=== PATIENT | female | born 1925 | race Caucasian/White ===

== ENCOUNTER → 2016-03-01 | Outpatient (CLI) | payer OTHER ==
[~2016-03-01] MED LIST: COUMADIN 2 MG TA2 M1 PO; COUMADIN 3 MG TA3 M1 PO; COZAAR 25 MG TA25 M1 PO; CYMBALTA30 MG PO; DEMADEX 2020 MG/1 TA PO; KLOR-CON 1010 MEQ PO; LASIX 40 MG TAB40 M2 PO; PANTOPRAZOLE SO40 M1 PO; PRAVACHOL40 MG PO; RANITIDINE 150150 M1 PO; RESTORIL15 MG PO; SORINE 80 MG TA80 M1 PO; TRAMADOL 50 MG50 MG PO
== END ==
LOC: RAD 13:59
DX: J90 Pleural effusion, not elsewhere classified (principal); R91.8 Other nonspecific abnormal finding of lung field

== ENCOUNTER → 2016-05-27 | Outpatient (CLI) | payer OTHER | LOC: ULTRA 02:02 | DX: M79.89 Other specified soft tissue disorders (principal); M79.604 Pain in right leg ==

== ENCOUNTER 2016-09-10 13:10 | Inpatient (IN) | payer OTHER ==
[~2016-09-10] VITALS: Ht 167.6 cm; Wt 71.2 kg
--- NOTE | ~2016-09-10 | HC ---
[facility] [place] [address] CONSULTATION Name: DENISSE CHAPMAN V Room #: 544-P [facility] IN ..#: [id number] Admission: 09/10/16 Attend Phys: Sheryl Jean MD Discharge: 09/20/16 Date of : [birth year] Report #: [id number] THIS REPORT FOR: //name// CC: Sheryl Venegas REASON FOR CONSULTATION: The patient is an 89-year-old woman who was admitted with septic arthritis who has had elevation of liver function studies. HISTORY OF PRESENT ILLNESS: This 89-year-old woman was admitted for septic arthritis and has been treated with antibiotics. She has had some complaints of gas symptoms and notes that she has had chronic constipation at home. Gas-X has been helpful. She has not had that here, so she has had more abdominal pain and discomfort. Labs were drawn and liver function studies revealed bilirubin 0.6. AST 48, ALT is 67, alkaline phosphatase of 139. Albumin was 2.9. Amylase and lipase were normal. Creatinine is 1.3 with BUN of 37. Electrolytes are unremarkable. INR 2.8, on Coumadin. White count of 16.6, hemoglobin of 10.7 and platelet count of 335,000. The imaging studies include abdominal film today reveals nonspecific abdominal findings without evidence of obstruction. There are scattered air fluid levels raising the possibility of an ileus or enteritis. The patient has never been told she had an abnormal liver function studies in the past. LFTs last January in the computer database were normal. She did have aortic valve replacement in 2003 and did have blood transfusions and likely blood transfusions. She has never had hepatitis or jaundice. No change in hair, skin or urine. She has not had complaints of pruritus. She has never consumed alcohol. She is not exposed to hepatitis. PAST MEDICAL HISTORY: Notable for aortic valve replacement, congestive heart failure. She has had esophagitis in the past. She has had pulmonary emboli. She has had a hiatus hernia. She has also had atrial fibrillation and high blood pressure and elevated cholesterol. PAST SURGICAL HISTORY: Back surgery x 2, hip surgery and later total hip replacement and aortic valve replacement. ALLERGIES: PIROXICAM, FEXOFENADINE and LATEX. HOME MEDICATIONS: Include atorvastatin, Ceftin, dexamethasone, diltiazem, Cymbalta, losartan, pantoprazole, potassium, temazepam, torsemide, tramadol, trazodone, warfarin. FAMILY HISTORY: No family history of colon cancer or ulcer disease. SOCIAL HISTORY: She has never smoked, has never consumed much alcohol. [address] [address] CONSULTATION Name: DENISSE CHAPMAN Jarrell Room #: 544-P [facility] IN ..#: [id number] Admission: 09/10/16 Attend Phys: Sheryl Jean MD Discharge: 09/20/16 Date of : [birth year] Report #: [id number] REVIEW OF SYSTEMS: GENERAL: No change in weight, fever or chills. CENTRAL NERVOUS SYSTEM: TIA several years ago, resolved without further incident. She also has problems with vertigos. HEENT: She has macular degeneration and glaucoma and has had cataract surgery. PULMONARY: No cough, pneumonia or tuberculosis. CARDIOVASCULAR: Congestive heart failure. No recent chest pain or chest tightness. GASTROINTESTINAL: No nausea or vomiting. She does have dysphagia and has had dilation in the past and having problems again. She has also trouble with constipation, was treated with fiber and Gas-X. GENITOURINARY: Without dysuria or pyuria. GYNECOLOGIC: Without breast problems or vaginal discharges. MUSCULOSKELETAL: Hip replacement and back surgery. SKIN: Without rashes. PSYCHIATRIC: No depression, anxiety or bipolar illness. ENDOCRINE: She is not aware of diabetes or thyroid problems. HEMATOLOGIC: No bleeding or bruising malignancies. PHYSICAL EXAMINATION: GENERAL: Well-developed, well-nourished, pleasant woman in no acute distress. VITAL SIGNS: Blood pressure 124/71. HEENT: Anicteric. Pupils equal and round. Oropharynx clear. NECK: Supple. CHEST: Clear. HEART: Regular rate and rhythm, normal S1 and S2. ABDOMEN: Normal bowel sounds, soft, nontender without hepatosplenomegaly or masses. RECTAL: Not done. EXTREMITIES: Without cyanosis, clubbing, edema. ASSESSMENT: 1. Abnormal liver function studies. 2. Abdominal pain, gas pain according to the patient. 3. Constipation. 4. Solid food dysphagia, recurrent. 5. Reflux esophagitis. 6. Aortic valve replacement. 7. Congestive heart failure. 8. Chronic anticoagulation. 9. Septic arthritis. COMMENT: No prior history of liver disease. The patient is asymptomatic. Stigmata of chronic liver disease is not identified on exam. LFTs may be reactive with regards to her septic arthritis. Antibiotics may be a factor as [facility] [address] [place] [address] CONSULTATION Name: DENISSE CHAPMAN V Room #: 544-P [facility] IN M.R.#: [id number] Admission: 09/10/16 Attend Phys: Sheryl Jean MD Discharge: 09/20/16 Date of : [birth year] Report #: [id number] well. She has had congestive heart failure. This may be a factor as well, although I think that it is probably less likely. She has not had significant right upper quadrant pain. RECOMMENDATIONS: 1. Ultrasound of abdomen. 2. Monitor liver function studies. 3. Hepatitis B and C serologies since she has had transfusions. <ELECTRONICALLY SIGNED> By: Rajendra Werner MD 09/22/16 1101 1705 1943 Rajendra Werner MD /nt
--- NOTE | ~2016-09-10 | HC ---
[facility] [place] [address] CONSULTATION Name: DENISSE CHAPMAN V Room #: 544-P ADM IN M.R.#: [id number] Admission: 09/10/16 Attend Phys: Sheryl Jean MD Discharge: Date of : 10/[birth year] Report #: [id number] THIS REPORT FOR: //name// CC: Sheryl Venegas TYPE OF REPORT: Infectious disease consultation. REASON FOR CONSULTATION: I was asked to evaluate concerning left hand and wrist infection. HISTORY OF PRESENT ILLNESS: The patient is an 89-year old who presents on 09/10/2016 with a 2-day history of increased pain and swelling in her left wrist. No fever, chills or sweats. Has had intermittent cough and sputum production for the last several weeks. Two weeks ago was treated with a 5-day course of prednisone. This helped some regarding her cough. No purulent sputum production. No fever, chills or sweats. She stated that she awokened with left hand and wrist discomfort. Had difficulty moving her fingers. No previous trauma. No history of arthritis, other than mild degenerative change. No new medications. No recent antibiotics. She was admitted on 09/10/2016 and placed on vancomycin. Over the last 24 hours, she has noted some improvement in her hand and wrist. ALLERGIES: PIROXICAM, LATEX and FEXOFENADINE. MEDICATIONS: As noted on APR, including the vancomycin. PAST MEDICAL HISTORY: Hiatal hernia and gastroesophageal reflux. She has had back surgery, left hip replacement, right hip repair, hypertension, hyperlipidemia, aortic valve replacement, congestive heart failure and atrial fibrillation. FAMILY HISTORY: Noncontributory. SOCIAL HISTORY: Nonsmoker. No significant alcohol intake. REVIEW OF SYSTEMS: No headache, nausea, vomiting, diarrhea, dysuria or frequency. Cough was with minimal sputum production. No chest pain. PHYSICAL EXAMINATION: VITAL SIGNS: Afebrile, hemodynamically stable. GENERAL: Alert and cooperative and pleasant, in no acute distress. HEENT: Unremarkable. CHEST: With few crackles in the left base posteriorly. HEART: Regular with crisp valve sounds. No appreciable murmur. ABDOMEN: Soft and nontender. No hepatosplenomegaly or mass. [facility] [address] [place] [address] CONSULTATION Name: DENISSE CHAPMAN V Room #: 544-P [facility] IN .R.#: [id number] Admission: 09/10/16 Attend Phys: Sheryl Jean MD Discharge: Date of : 10/[birth year] Report #: [id number] EXTREMITIES: Unremarkable other than her left upper extremity with 2+ edema. There was erythema over the dorsal aspect of her hand from the distal forearm to her fingers involving 2 and 3. She had limited range of motion in fingers 2 and 3 with flexion. Limited hand client experience manager. Wrist had reasonable range of motion. Elbow was unremarkable. Pulses in the wrist were normal. Sensation in the hand was normal. Capillary refill normal. LABORATORY STUDIES: Creatinine is 1.3. CRP 188. Hemoglobin 10.3; white count 12.8 and platelet count 258,000. Differential unremarkable. Sedimentation rate 33. Uric acid 5.9. Calcium 8.9. Blood cultures negative. 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 IMPRESSION: An 89-year old with cellulitis and tenosynovitis of the left hand and wrist region. It appears to be improving. We would recommend continuing IV antibiotic therapy for this. She also has a left lower lobe pulmonary infiltrate. This is associated with a small effusion. It is noted that she had had issues with the left lung back in February. PLAN: To continue vancomycin and add ceftriaxone. We will screen for MRSA. Also, check urine antigen and mycoplasma serology. <ELECTRONICALLY SIGNED> By: Aubrey Villar MD 09/13/16 1426 1218 41 Aubrey Villar MD /nt
--- NOTE | ~2016-09-10 | HC ---
[facility] [place] [address] CONSULTATION Name: DENISSE CHAPMAN V Room #: 544-P [facility] IN M.R.#: [id number] Admission: 09/10/16 Attend Phys: Sheryl Jean MD Discharge: Date of : 10/18/[birth year] Report #: [id number] THIS REPORT FOR: //name// CC: Sheryl Eastman MD [facility] ORTHOPEDIC CONSULTATION REASON FOR CONSULTATION: Left wrist pain. HISTORY OF PRESENT ILLNESS: The patient is an 89-year-old female who reports on Monday, she noticed significant increase in wrist pain and swelling with redness. She reports the pain is not improved over the last 2 days. She denies a history of gout, denies prior history of similar scenario. She was seen at an urgent care and reportedly had an elevated temperature of 100 degrees. She denies any wounds or lacerations or recent trauma. She reports her pain is sharp, is in the wrist level as well as distal to her hand. PAST MEDICAL HISTORY: Hypertension and congestive heart failure. HOME MEDICATIONS: Per the medical record include tramadol, warfarin, losartan, temazepam, duloxetine, potassium chloride, atorvastatin, diltiazem and trazodone. ALLERGIES: FEXOFENADINE, LATEX AND PIROXICAM. SOCIAL HISTORY: She lives with her daughter, uses a cane or a walker at times and is right-hand dominant. Denies smoking or drinking alcohol. REVIEW OF SYSTEMS: MUSCULOSKELETAL: Reports some mild chronic right hip pain. NEUROLOGIC: Denies numbness or tingling. PAST SURGICAL HISTORY: Left total hip replacement in 2001, back surgery in 2002. She has had some type of surgery on her right hip and she has had an aortic valve replacement. LABORATORY DATA: Laboratory studies done on 09/10/2016 show white blood cell count 15.7, hemoglobin 11.9, hematocrit 36.6 and platelet count 293,000. ESR is elevated at 33. Sodium is 133, potassium is normal at 3.9 and creatinine is elevated at 1.3. Uric acid is normal at 5.9. CRP is elevated at 188.5. There are no labs currently today. PHYSICAL EXAMINATION: GENERAL: The patient is alert and oriented. [place] [address] CONSULTATION Name: DENISSE CHAPMAN V Room #: 544-P [facility] IN ..#: [id number] Admission: 09/10/16 Attend Phys: Sheryl Jean MD Discharge: Date of : 10/[birth year] Report #: [id number] is a well-developed, well-nourished female in no acute distress. She converses well. She has a little difficulty hearing our conversation, but is able to communicate well and cooperative well. VITAL SIGNS: Most recent vital signs show a temperature of 36.7, heart rate is 91, respiratory rate 20, blood pressure 101/80 and pulse oximetry is 98% on 2 liters nasal cannula. EXTREMITIES: Examination of her left upper extremity, the skin is clean, dry and intact. She has a dorsal erythema extending from approximately 6 cm proximal to the wrist to the MP joints, more radially on the index and approximately midway of the metacarpals on the ring and small. There is minimal to no volar erythema. Sensation is intact to light touch. She very gently moves her fingers, but her motion is significantly decreased. She has pain with attempted finger and wrist and forearm motion. She has tenderness to palpation throughout the entire area of erythema. It does not seem to be exclusively localized to the wrist. There is no elbow pain and no proximal forearm pain. 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 IMPRESSION AND PLAN: Right wrist and hand pain with elevated white blood cell count and inflammatory markers. The pain does not appear to be only localized to the wrist. I am suspicious for pseudogout. At this point, I feel it is appropriate to obtain more lab work this morning including CBC and a PT-INR. I would continue her on antibiotics, possibly consider systemic steroid. If the potential diagnosis is CPPD, we discussed that I will tentatively put her on the surgery schedule for tomorrow for irrigation. However, I will see her tomorrow morning and assess her progress. Thank you very much for allowing me to participate in the care of this patient. By: [id number] [id number] Carey Venegas MD /nt
[2016-09-10 13:11] VITALS: BP 101/48
[2016-09-10] MEDS ORDERED: LIPITOR 20 MG T20 M1 PO ×2 (13:34)
[2016-09-10] MEDS ORDERED: CARDIZEM CD180 MG PO (13:36)
[2016-09-10] MEDS ORDERED: TRAZODONE HCL50 MG PO (13:38)
[2016-09-10 14:07] LABS: HEMATOCRIT 36.6 % (37.0-47.0); HEMOGLOBIN 11.9 gm/dL (12.0-15.0); MCH 26.4 pg (26.0-34.0); MCHC 32.5 g/dL (28.0-37.0); MCV 81.3 fL (80.0-100.0); PLATELET COUNT 293 thou/uL (150-400); RBC 4.51 mil/uL (4.20-5.00); RDW 16.3 % (10.5-14.5); WBC 15.7 thou/uL (4.0-11.0)
[2016-09-10 14:08] LABS: MANUAL DIFF YES
[2016-09-10 14:17] LABS: CALCIUM 8.9 mg/dL (8.5-10.1); CREATININE 1.3 mg/dL (0.6-1.0); POTASSIUM 3.9 mmol/L (3.5-5.1)
[2016-09-10 14:41] LABS: ABSOLUTE NEUTROPHILS 13.7 thou/uL (1.4-8.2); TOTAL CELL COUNT 100
[2016-09-10 14:42] LABS: ANISOCYTOSIS 1+
[2016-09-10 15:58] VITALS: BP 101/52
[2016-09-10 16:15] VITALS: BP 116/59
[2016-09-10 20:00] VITALS: BP 101/80
[2016-09-11 07:55] VITALS: BP 98/47
[2016-09-11 09:09] LABS: HEMATOCRIT 31.4 % (37.0-47.0); HEMOGLOBIN 10.3 gm/dL (12.0-15.0); MCH 26.4 pg (26.0-34.0); MCHC 32.7 g/dL (28.0-37.0); MCV 80.5 fL (80.0-100.0); PLATELET COUNT 258 thou/uL (150-400); RDW 15.9 % (10.5-14.5); WBC 12.8 thou/uL (4.0-11.0)
[2016-09-11 09:12] LABS: MANUAL DIFF YES
[2016-09-11 09:27] LABS: INR 2.4; PROTIME 24.5 Seconds (9.3-11.4)
[2016-09-11 10:01] LABS: ABSOLUTE NEUTROPHILS 10.5 thou/uL (1.4-8.2); ANISOCYTOSIS 1+; HYPOCHROMASIA 1+; TOTAL CELL COUNT 100
[2016-09-11 14:09] LABS: ABG SAMPLE TYPE ARTERIAL; BE(vivo) -1.4 mmol/L (-2 to +3); HCO3 23.1 mmol/L (22.0-26.0); LACTATE 1.25 mmol/L (0.5-2.0); O2(CT) 15.2 mL/dL (15.0-23.0); O2Hb 96.5 % (92.0-98.0); PCO2 38.4 mmHg (35.0-45.0); PO2 91.8 mmHg (80.0-100.0); pH 7.398 (7.360-7.450); tCO2 24.3 mmol/L (24.0-30.0)
[2016-09-11 14:11] LABS: STICK SITE R.RADIAL
[2016-09-11 15:30] VITALS: BP 136/58
[2016-09-11 23:08] VITALS: BP 149/80
[2016-09-12 00:29] VITALS: BP 149/80
[2016-09-12 15:00] LABS: ABSOLUTE NEUTROPHILS 11.1 thou/uL (1.4-8.2); BASOPHILS 0.3 % (0.0-2.0); EOSINOPHILS 0.2 % (0.0-3.0); HEMATOCRIT 35.3 % (37.0-47.0); HEMOGLOBIN 11.3 gm/dL (12.0-15.0); LYMPHOCYTES 4.9 % (24.0-44.0); MCH 26.7 pg (26.0-34.0); MCV 83.4 fL (80.0-100.0); MONOCYTES 1.9 % (1.0-8.0); PLATELET COUNT 267 thou/uL (150-400); POLYS 92.7 % (36.0-66.0); RBC 4.23 mil/uL (4.20-5.00); RDW 16.2 % (10.5-14.5); WBC 11.9 thou/uL (4.0-11.0)
[2016-09-12 15:04] LABS: MANUAL DIFF NO
[2016-09-12 16:35] VITALS: BP 100/53
[2016-09-12 20:10] VITALS: BP 123/73
[2016-09-13 03:38] VITALS: BP 109/74
[2016-09-13 04:59] LABS: HEMATOCRIT 31.1 % (37.0-47.0); HEMOGLOBIN 10.3 gm/dL (12.0-15.0); MCH 26.7 pg (26.0-34.0); MCV 80.9 fL (80.0-100.0); RBC 3.85 mil/uL (4.20-5.00); RDW 15.7 % (10.5-14.5); WBC 7.2 thou/uL (4.0-11.0)
[2016-09-13 05:18] LABS: INR 1.8; PROTIME 18.1 Seconds (9.3-11.4)
[2016-09-13 05:30] LABS: CALCIUM 8.3 mg/dL (8.5-10.1); CREATININE 1.1 mg/dL (0.6-1.0); POTASSIUM 4.3 mmol/L (3.5-5.1)
[2016-09-13 07:36] VITALS: BP 104/56
[2016-09-13 15:15] VITALS: BP 105/61
[2016-09-13 20:00] VITALS: BP 123/80
[2016-09-14] VITALS: BP 103/64
[2016-09-14 04:00] VITALS: BP 112/64
[2016-09-14 07:47] VITALS: BP 99/51
[2016-09-14 19:44] VITALS: BP 124/72
[2016-09-15 05:10] VITALS: BP 121/82
[2016-09-15 06:35] LABS: HEMATOCRIT 33.1 % (37.0-47.0); HEMOGLOBIN 10.7 gm/dL (12.0-15.0); MCHC 32.5 g/dL (28.0-37.0); MCV 80.2 fL (80.0-100.0); RBC 4.13 mil/uL (4.20-5.00); RDW 15.9 % (10.5-14.5); WBC 16.6 thou/uL (4.0-11.0)
[2016-09-15 06:38] LABS: PROTIME 28.4 Seconds (9.3-11.4)
[2016-09-15 07:05] LABS: INR 2.8
[2016-09-15 08:29] VITALS: BP 131/74
[2016-09-15 15:18] VITALS: BP 121/69
[2016-09-15 19:16] VITALS: BP 114/69
[2016-09-16] MEDS ORDERED: DEXAMETHASONE 44 M1 PO (01:37)
[2016-09-16 03:40] VITALS: BP 121/71
[2016-09-16 09:44] VITALS: BP 124/71
[2016-09-16] MEDS ORDERED: CEFUROXIME500 MG PO (09:47)
[2016-09-16 11:26] LABS: ALBUMIN 2.9 g/dL (3.4-5.0); CALCIUM 8.4 mg/dL (8.5-10.1); CREATININE 1.3 mg/dL (0.6-1.0); POTASSIUM 4.4 mmol/L (3.5-5.1); TOTAL BILIRUBIN 0.6 mg/dL (<0.1-1.0); TOTAL PROTEIN 6.5 g/dL (6.4-8.2)
[2016-09-16 16:25] VITALS: BP 125/78
[2016-09-16 19:59] VITALS: BP 120/99
[2016-09-17 01:07] LABS: HEPATITIS C VIRUS AB <0.1 (0.0-0.9)
[2016-09-17 03:53] VITALS: BP 123/86
[2016-09-17 05:03] LABS: PROTIME 43.2 Seconds (9.3-11.4)
[2016-09-17 05:04] LABS: INR 4.3
[2016-09-17 05:08] LABS: ALBUMIN 2.7 g/dL (3.4-5.0); DIRECT BILIRUBIN 0.2 mg/dL (<0.1-0.3); TOTAL BILIRUBIN 0.6 mg/dL (<0.1-1.0)
[2016-09-17 08:00] VITALS: BP 129/96
[2016-09-17 18:01] VITALS: BP 130/80
[2016-09-17 19:33] VITALS: BP 110/88
[2016-09-18 03:28] VITALS: BP 104/70
[2016-09-18 05:59] LABS: HEMATOCRIT 31.5 % (37.0-47.0); HEMOGLOBIN 10.4 gm/dL (12.0-15.0); MCH 26.4 pg (26.0-34.0); MCHC 33.1 g/dL (28.0-37.0); MCV 79.6 fL (80.0-100.0); RBC 3.95 mil/uL (4.20-5.00); RDW 15.8 % (10.5-14.5); WBC 14.7 thou/uL (4.0-11.0)
[2016-09-18 06:08] LABS: INR 3.9; PROTIME 39.3 Seconds (9.3-11.4)
[2016-09-18 06:19] LABS: ALBUMIN 2.7 g/dL (3.4-5.0); DIRECT BILIRUBIN 0.2 mg/dL (<0.1-0.3); TOTAL BILIRUBIN 0.6 mg/dL (<0.1-1.0); TOTAL PROTEIN 5.9 g/dL (6.4-8.2)
[2016-09-18 09:28] VITALS: BP 121/92
[2016-09-18 09:41] VITALS: BP 121/92
[2016-09-18 16:00] VITALS: BP 108/65
[2016-09-18 18:55] VITALS: BP 114/63
[2016-09-19 02:38] VITALS: BP 117/74
[2016-09-19 04:31] LABS: INR 3.6; PROTIME 36.1 Seconds (9.3-11.4)
[2016-09-19 07:50] VITALS: BP 121/79
[2016-09-19 19:33] VITALS: BP 119/74
[2016-09-20 04:37] VITALS: BP 118/88
[2016-09-20 08:25] VITALS: BP 127/81
[2016-09-20] MEDS ORDERED: MIRALAX17 GM PO (09:27)
[2016-09-20] MEDS ORDERED: DEXAMETHASONE 44 M1 PO (09:28)
[2016-09-20] MEDS ORDERED: CEFUROXIME500 MG PO (09:29)
[2016-09-20 09:56] VITALS: BP 127/81
[2016-09-20 10:16] VITALS: BP 127/81
[2016-09-20 10:26] VITALS: BP 127/81
== END 2016-09-20 14:00 | disposition home health service (06) | DRG 549 ==
LOC: ER 13:10 → EROBS 15:05 → 5S 15:05
PROVIDERS: Emergency Medicine; Internal Medicine; Internal Medicine Pulmonary Disease; Orthopaedic Surgery Hand Surgery; Specialist
PROC: 5A09357 Assistance with Respiratory Ventilation, Less than 24 Consecutive Hours, Continuous Positive Airway Pressure (ICD-10-PCS; principal; 2016-09-11)
DX: M00.9 Pyogenic arthritis, unspecified (principal); L03.114 Cellulitis of left upper limb; I50.32 Chronic diastolic (congestive) heart failure; E44.0 Moderate protein-calorie malnutrition; M65.842 Other synovitis and tenosynovitis, left hand; I11.0 Hypertensive heart disease with heart failure; K21.9 Gastro-esophageal reflux disease without esophagitis; E78.5 Hyperlipidemia, unspecified; I48.91 Unspecified atrial fibrillation; K59.00 Constipation, unspecified; K80.20 Calculus of gallbladder without cholecystitis without obstruction; E78.00 Pure hypercholesterolemia, unspecified; Z96.642 Presence of left artificial hip joint; G47.33 Obstructive sleep apnea (adult) (pediatric); Z96.652 Presence of left artificial knee joint; Z68.25 Body mass index [BMI] 25.0-25.9, adult; Z86.711 Personal history of pulmonary embolism; Z79.01 Long term (current) use of anticoagulants; Z79.899 Other long term (current) drug therapy; Z95.2 Presence of prosthetic heart valve; Z88.8 Allergy status to other drugs, medicaments and biological substances; Z91.040 Latex allergy status
CPT/HCPCS: 10086

== ENCOUNTER 2016-10-05 18:39 | Inpatient (IN) | payer OTHER ==
[~2016-10-05] VITALS: Ht 170.2 cm; Wt 70.1 kg
--- NOTE | ~2016-10-05 | CNG ---
[facility] [place] [address] CYTO-NONGYN REPORT PROCEDURE Name: DENISSE JOY V Room #: 447-P ADM IN M.R.#: [id number] Admission: 10/05/16 Date of : [birth year] Discharge: Report #: [id number] Path Case #: [id number] CYTOPATHOLOGY REPORT COLLECTION DATE: 10/12/2016 RECEIVED DATE: 10/12/2016 SUBMITTING PHYS: Dr. Denilson Godfrey OTHER PHYS: Dr. Kwabena Eastman CLINICAL HISTORY: Weakness, UTI. SPECIMEN(S) RECEIVED: A.Pleural fluid, Right * * * * * * * * * * * * FINAL DIAGNOSIS: A. Pleural fluid, Right: - No malignant epithelial cells identified. - Reactive mesothelial cells identified in a background of chronic inflammation including increased lymphocytes. COMMENT: The lymphocytes are small round and mature appearing. No markedly atypical cells are seen. If there is a clinical suspicion for a lymphoproliferative process and/or the effusion is unexplained / recurs, flow cytometry may provide additional information, if clinically indicated. Clinical and radiographic correlation is recommended. (CLW;10/13/16) PATHOLOGIST: Lauryn Ibarra M.D. REPORT ELECTRONICALLY SIGNED BY: Lauryn Ibarra M.D. DATE/TIME: 10/13/2016 11:49 * * * * * * * * * * * * GROSS PATHOLOGY: A. Pleural fluid, Right: The specimen is submitted unfixed, labeled "Denisse Joy V". Received by the Cytology Department is 30 mL of reddish orange fluid. One ThinPrep slide and a formalin fixed cell block were prepared. (clt 10.12.2016) BLACKJACK DEALER(S): YOANA Wright([facility]) INITIAL CPT CODE(S): A; 01587, 11732 Professional services performed by [facility] at [facility] [address] [place] [address] [facility] [address] [place] [address] CYTO-NONGYN REPORT PROCEDURE Name: DENISSE JOY V Room #: 447-P ADM IN M.R.#: [id number] Admission: 10/05/16 Date of : [birth year] Discharge: Report #: [id number] Path Case #: [id number] Technical services performed by [facility] at [address] [place] [address], [address], [place] [address]. [address], [address] [place] [address] PHONE: [phone] DIRECTOR: Hudson Burns M.D. * * * END OF REPORT * * *
--- NOTE | ~2016-10-05 | HC ---
[facility] [place] [address] CONSULTATION Name: DENISSE CHAPMAN Jarrell Room #: 447-P [facility] IN M.R.#: [id number] Admission: 10/05/16 Attend Phys: Kwabena Eastman MD Discharge: Date of : 10/[birth year] Report #: [id number] THIS REPORT FOR: //name// CC: Kwabena Eastman DATE OF SERVICE: 10/12/2016 HISTORY OF PRESENT ILLNESS: The patient is an 89-year-old white female originally admitted to [facility] on 09/10/2016 with left wrist pain, question septic arthritis versus calcium pyrophosphate crystal disease. She was treated with full dose antibiotics and corticosteroids, discharged home on 09/20/2016. She ended up being readmitted to [facility] at [facility] on 09/29/2016 due to diarrhea and weight loss. She has remained quite weak and upon being seen in the office by Dr. Eastman. She was noted to have mental status changes, failure to thrive, progressive weakness, hyponatremia, urinary tract infection, and development of cough, she was admitted for further evaluation. 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 She was noted to have hyponatremia, urinary tract infection. Findings consistent with congestive heart failure. She has been followed closely by Pulmonary Medicine. She has bilateral pleural effusions, right greater than left and the plan is to undergo a right-sided thoracentesis when INR is acceptable. She has severe pulmonary hypertension. She has atrial fibrillation. She has a history of pulmonary embolism on anticoagulation. We are seeing her in rehabilitation medicine consultation. PAST MEDICAL HISTORY: As noted above. She has a history of mechanical mitral valve on Coumadin, diastolic congestive heart failure, back surgery, left hip replacement, hyperlipidemia, history of a small pulmonary embolism, pneumonia, permanent atrial fibrillation, asymptomatic gallstones. MEDICATIONS: Please see the full medication listing. ALLERGIES: PIROXICAM, FEXOFENADINE AND LATEX. SOCIAL HISTORY: Lives in a house with her daughter, 3 steps, used a front-wheeled walker and off. Daughter is there during the day and apparently does not work and can be of assistance. She was not on O2 premorbidly. REVIEW OF SYSTEMS: Complains of general overall weakness. No current complaints of chest pain, shortness of breath or abdominal discomfort. No focal extremity pain complaints. PHYSICAL EXAMINATION: GENERAL: An 89-year-old white female in no obvious distress. She is pleasant. She is on nasal prong O2, currently 2 liters. The patient is alert. VITAL SIGNS: Temperature 97.9, pulse 92, respirations 18, blood pressure [address] [address] CONSULTATION Name: DENISSE CHAPMAN V Room #: 447-P [facility] IN [facility].#: [id number] Admission: 10/05/16 Attend Phys: Kwabena Eastman MD Discharge: Date of : 10/18/[birth year] Report #: [id number] 121/56. HEENT: Appeared to be benign. NEUROLOGIC: Cranial nerves are grossly intact. Facies are symmetric. Some latency to her responses and some slowness with her problems solving. EXTREMITIES: She has functional range of motion of both upper extremities with strength grade 3+ to 4-/5. DTRs are trace to 1. In her lower extremities, there is no focal calf swelling, functional range of motion with strength grade 4-/5. She was min assist with sit to stand and ambulated 50 feet contact guard with a front-wheeled walker. ASSESSMENT: An 89-year-old white female with the following problem list: 1. 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 2. Medical complexity with generalized debilitation. 3. Bilateral pleural effusions, right greater than left. 4. Severe pulmonary hypertension. 5. Status post prosthetic mitral valve replacement. 6. Atrial fibrillation. 7. Pulmonary embolism, on anticoagulation. 8. Urinary tract infection. PLAN: She is to undergo the thoracentesis, pending her INR. She has considerable medical complexity and is being followed by Internal Medicine as well as Pulmonary Medicine. Cardiology is involved as well. I agree that a short acute in-hospital inpatient rehabilitation stay could be helpful for her as far as further improving her strength, mobility, ADL, independence and endurance to try to get her back into the home setting. She has considerable complexity and the multiple database consultant physicians could continue to follow while she is on the acute inpatient rehab turcios. At this point, we will follow along with you regarding her rehab therapy needs as she further medically stabilizes. Thank you for asking us to assist in this patient's care. By: 1435 [id number] Alonso Edwards MD /
--- NOTE | ~2016-10-05 | H ---
[facility] [place] [address] HISTORY AND PHYSICAL Name: DENISSE CHAPMAN Jarrell Room #: 447-P [facility] IN M.R.#: [id number] Admission: 10/05/16 Attend Phys: Kwabena Eastman MD Discharge: 10/15/16 Date of : [birth year] Report #: [id number] THIS REPORT FOR: //name// CC: Kwabena Eastman DATE OF SERVICE: 10/06/2016 CHIEF COMPLAINT: Weakness. 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 She was hospitalized for 10 days and treated with full dose antibiotics and full dose corticosteroids. She was discharged to her home. She was discharged to her home on 09/20/2016. She was discharged on dexamethasone 4 mg tablets 4 times a day to be tapered off and finished her last dose about September 25. She was also on cefuroxime 500 mg twice daily, which she also finished. "She never really perked up after she got back home" according to her daughter. She went to the [facility] on September 29 because of diarrhea and loose stools and a 10-pound weight loss in 1 day, as reported by her home health nurse at the time. She was kept in the hospital overnight and discharged the next day with the addition of metronidazole and ondansetron to her usual home medications. Her daughter reports that they were never told what findings were while she was at [facility]. They were not told the rationale for the ondansetron or the metronidazole, and because of this, the daughter has not given the patient these medications. The medications were identified by the pill bottles that the daughter brought with the patient to my office on 10/03/2016. In my office on that day examination suggested generalized weakness and slow recovery from her prolonged hospital stay, being bed fast and prolonged administration of corticosteroids. Urinalysis was abnormal and with the patient being ill, amoxicillin was prescribed and because of the concern for a possible C. diff colitis, she was instructed to begin the metronidazole prescription she had been given at [facility]. Since she was in my office on 10/03/2016, she has not gotten better, but has become weaker. For this reason, she went to the emergency room last night. She has had mental status changes as well. In the emergency room, she was found to still have a urinary tract infection with 3+ blood in her urine, and race leukocyte esterase and wbc's. Because of her failure to thrive and mental status changes/not being herself and progressive weakness as well as her low sodium of 132 and elevated INR of 4.1, inpatient admission was indicated. With the weakness, a low dose intravenous fluid was started and intravenous ceftriaxone for her urinary tract infection. Overnight, she is reported the development of a cough and some shortness of [address] [address] HISTORY AND PHYSICAL Name: EVY CHAPMANMikala Vieyra Room #: 447-P DIS IN M.R.#: [id number] Admission: 10/05/16 Attend Phys: Kwabena Eastman MD Discharge: 10/15/16 Date of : [birth year] Report #: [id number] breath. On my exam, she still remains not as mentally clear as usual. PAST MEDICAL HISTORY: Most recently significant for her hospital stay 09/10/2016-09/20/2016, at [facility], with an essentially failure to thrive at home course afterwards. She is on warfarin for mechanical mitral valve replacement about 2004. She has pulmonary hypertension. Diastolic congestive heart failure. Hyperlipidemia. History of back surgery. Left hip replacement. Cataract surgery. There is a history of a small pulmonary embolus. Pneumonia. Permanent atrial fibrillation. Obstructive sleep apnea and she has CPAP/BiPAP machine. Asymptomatic gallstones have been identified. Coronary artery calcifications were seen on CT scan. Grade D esophagitis with possible Cyndy and [id number] antral and gastric body gastritis were seen while hospitalized in January 2016. CURRENT MEDICATIONS: Amoxicillin 500 mg 3 times daily was started on 10/03 along with metronidazole. Losartan 25 mg daily was discontinued when discharged on 09/20/2016. Incidental note is made the both the patient and her daughter were upset that this medication was discontinued, but it was pointed out to them that without that medication, her blood pressure was still low at 109/67 when in my office, and that should she have been taking that medication, it would have been very low. Amoxicillin 250 mg 3 times daily was prescribed. OTHER USUAL HOME MEDICATIONS: Torsemide 20 mg daily, pravastatin 40 mg daily, duloxetine extended release 60 mg once daily, potassium 10 mEq extended release daily, diltiazem CD 180 mg once daily, warfarin 3 mg tablets on Mondays, Wednesdays and Fridays and a 2 mg tablet on Sundays, Tuesdays, , and Saturdays. Ropinirole 0.25 mg once daily, temazepam 15 mg 1 at bedtime along with trazodone 50 mg at bedtime. Tramadol 50 mg as needed for pain. PreserVision AREDS twice daily, B12 500 mcg daily, D3 5000 international units once daily, biotin 2500 mcg once daily, and laxative every night at bedtime. ALLERGIES: PIROXICAM, FEXOFENADINE, and LATEX. ADDITIONAL DIAGNOSES: Mild elevation of LFTs while in hospital 09/10/2016, multifactorial; mitral valve replacement in 2003 with blood transfusions-no history of hepatitis or jaundice, GERD. REVIEW OF SYSTEMS: She currently denies any alterations with her stools and specifically denies constipation. Otherwise, her review of systems is unremarkable. [facility] [address] [place] [address] HISTORY AND PHYSICAL Name: DENISSE CHAPMAN V Room #: 447-P [facility] IN [facility].#: [id number] Admission: 10/05/16 Attend Phys: Kwabena Eastman MD Discharge: 10/15/16 Date of : [birth year] Report #: [id number] O: GENERAL: Examination shows an 89-year-old female who was awake and alert this morning. She is in some distress from mild dyspnea at rest and cough. Her cognition and history accuracy is somewhat less than usual. HEENT: Unremarkable. LUNGS: A few rales and rare of wheezing and rhonchi are heard throughout her lung vasquez. CARDIOVASCULAR: S1 and S2 are normal, the rhythm is irregularly irregular. NECK: Her jugular venous pressure is elevated. ABDOMEN: Soft and nontender. EXTREMITIES: There is no significant leg or pedal edema present at the time of my examination. NEUROLOGIC: Negative for focal deficits. LABORATORY DATA: Urinalysis continues to show blood and white blood cells. Her INR is elevated at 4.1. Her sodium is low at 132. Her creatinine was 1.1, which is close to baseline. Her albumin is low at 2.7. Her lactate is elevated at 2.3. Her WBCs are 7.9 thousand, her hemoglobin is 12.4. Her differential shows a mild left shift with 70.6% neutrophils and lymphopenia with 15.8% lymphocytes and mildly elevated monocytes of 9000. A: 1. Continued weakness and failure to thrive at home after her previous hospital stay. 2. Toxic encephalopathy with an increase in her baseline mild cognitive and memory dysfunction. 3. Hyponatremia. 4. Urinary tract infection that is partially or incompletely treated. 5. Findings suggestive of congestive heart failure on physical examination. 6. History of diastolic congestive heart failure. 7. History of mechanical mitral valve replacement-on warfarin. 8. Elevated INR-suspected from medication interaction as well as not eating what she usually the amount of food she usually eats. 9. 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 10. Gastroesophageal reflux disease. 11. History of grade D esophagitis along with mild antral gastritis and gastric body gastritis. 12. Findings of her overnight hospital stay at [facility] 09/29/2016-09/30/2016, remain unknown. 13. Permanent atrial fibrillation. 14. Dyspnea 15. Other medical problems as mentioned in body of the report above. PLAN: The patient is admitted to an inpatient status. At the time of this dictation, her urine culture from the office on 10/03/2016, available and shows [address] [address] HISTORY AND PHYSICAL Name: EVY CHAPMANMikala Vieyra Room #: 447-P [facility] IN ..#: [id number] Admission: 10/05/16 Attend Phys: Kwabena Eastman MD Discharge: 10/15/16 Date of : 10/[birth year] Report #: [id number] a resistance to ceftriaxone by the 10,000-50,000 CFUs of E. coli, but it is sensitive to levofloxacin and ciprofloxacin. Levofloxacin will be given intravenously. Additional information is also now available that she complained of the a deep cough and wheezing as well as being weaker when her daughter telephoned the office yesterday afternoon, and that she was not eating and not drinking any liquid with the urine still having a strong odor and appearing of a dark color. For these reasons, she was referred to the emergency room, and this time she chose to return to [facility]. The patient was asked as to her code status. She indicated she still had more reasons to live, and a full code blue was thereby ordered. <ELECTRONICALLY SIGNED> By: Kwabena Eastman MD 10/18/16 2235 [id number] Kwabena Eastman MD /nt
--- NOTE | ~2016-10-05 | 2DMMODE ---
[facility] [address] [place] [address] 2 D/M-MODE ECHOCARDIOGRAM Name: DENISSE CHAPMAN V Room #: 447-P [facility].#: [id number] Admission: 10/05/16 Attend Phys: Kwabena Eastman, Discharge: 10/15/16 Date of : [birth year] Date of Service: 10/18/16 0753 Report #: [id number] THIS REPORT FOR: //name// ADDENDUM APPROVED REPORT Study performed: 10/06/2016 14:47:06 EXAM: Comprehensive 2D, Doppler, and color-flow Echocardiogram Patient Location: Bedside Room #: 447 Status: routine BSA: 1.81 HR: 85 bpm BP: 111/95 mmHg Other Information Study Quality: Adequate Indications Dyspnea Hx HTN, CHF, MVR 2D Dimensions RVDd: 43.74 mm LVEF(%): 76.64 (>50%) IVSd: 8.26 (7-11mm) LVOT Diam: 17.85 (18-24mm) LVDd: 43.73 mm PWd: 9.36 (7-11mm) Ascending Ao: 26.63 (22-36mm) LVDs: 24.01 (25-40mm) Aortic Root: 29.05 mm IVC: 2.70 mm Mack's LVEF: 76.64 % Volumes Left Atrial Volume (Systole) Single Plane 4CH: 85.77 mL Single Plane 2CH: 61.78 mL LA ESV Index: 46.00 mL/m2 Aortic Valve AoV Peak Faustino.: 1.15 m/s AO Peak Gr.: 5.25 mmHg LVOT Max P.43 mmHg LVOT Max V: 0.78 m/s MALIA Vmax: 1.70 cm2 Mitral Valve E/A Ratio: 3.4 MVA Planimetry: 1843.34 mm2 MV Decel. Time: 173.22 ms [facility] [employer] [address] 2 D/M-MODE ECHOCARDIOGRAM Name: DENISSE CHAPMAN V Room #: 447-P [facility] [id number] Admission: 10/05/16 Attend Phys: Kwabena Eastman, Discharge: 10/15/16 Date of : [birth year] Date of Service: 10/18/16 0753 Report #: [id number] MV E Max Faustino.: 1.62 m/s MV A Faustino.: 0.48 m/s MV PHT: 50.23 ms IVRT: 96.89 ms Tricuspid Valve TR Peak Faustino.: 4.35 m/s RAP Estimate: 10.00 mmHg TR Peak Gr.: 75.52 mmHg PA Pressure: 86.00 mmHg Left Ventricle The left ventricle is normal size. There is normal LV segmental wall motion. There is normal left ventricular wall thickness. The left ventricular systolic function is normal. The left ventricular ejection fraction is within the normal range. LVEF is 65%. Left ventricular filling pattern is normal for age. Right Ventricle Right ventricle is dilated. The right ventricular systolic function is normal. Atria Left atrium is dilated. Right atrium is dilated. Aortic Valve Aortic valve is calcified. Mild aortic regurgitation. There is no aortic valvular stenosis. Mitral Valve There is a bi-leaflet (St. Ezra) mechanical prosthesis of the mitral valve. No evidence of mitral valve stenosis. Tricuspid Valve The tricuspid valve is normal in structure. There is severe tricuspid regurgitation. The right atrial pressure is estimated at 10 mmHg. There is severe pulmonary hypertension with an estimated PAP of 85 mmHg. Pulmonic Valve The pulmonary valve is normal in structure. Trace pulmonic regurgitation. Great Vessels The aortic root is normal in size. The ascending aorta is normal in size. IVC is dilated and collapses >50% with inspiration. [facility] [address] [place] [address] 2 D/M-MODE ECHOCARDIOGRAM Name: DENISSE CHAPMAN V Room #: 447-P [facility] IN [facility]#: [id number] Admission: 10/05/16 Attend Phys: Kwabena Eastman, Discharge: 10/15/16 Date of : [birth year] Date of Service: 10/18/16 0753 Report #: [id number] Pericardium There is no pericardial effusion. <Conclusion> The left ventricular systolic function is normal. There is normal LV segmental wall motion. LVEF is 65%. Both atria are dilated. Aortic valve is calcified, no aortic valvular stenosis. Mild aortic regurgitation. There is a bi-leaflet (St. Ezra) mechanical prosthesis of the mitral valve. No evidence of mitral valve stenosis. Pulmonary artery pressure of 80-85mm Hg There is no pericardial effusion. 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 Very difficult to assess due to acoustic shadowing from mechanical prosthesis <ELECTRONICALLY SIGNED> By: David Tran MD, [facility] 10/18/16 0753 075 075 David Tran MD, FAC /INF
--- NOTE | ~2016-10-05 | EKG ---
[address] [address] ELECTROCARDIOGRAM REPORT Name: EVY CHAPMANMikala Vieyra Room #: 447-P ADM IN M.R.#: [id number] Admission: 10/05/16 Attend Phys: Kwabena Eastman MD Discharge: Date of : [birth year] Report #: [id number] THIS REPORT FOR: //name// [facility] Test Date: 2016-10-06 Test Time: 09:48:01 Pat Name: DENISSE CHAPMAN Department: Room: 447 P Gender: F [employer] Worker: : [id number] Requested By: Nicole Singh Order Number: [id number] MD: David Tran Measurements Intervals [employer] Rate: 96 P: DE: QRS: 17 QRSD: 107 T: 133 QT: 354 QTc: 448 Interpretive Statements Atrial fibrillation Ventricular premature complex Nonspecific ST and T wave abnormality Compared to ECG 02/01/2016 11:32:59 Ventricular premature complex(es) now present Electronically Signed On 10-07-2016 8:04:04 CDT by David Tran [email or web address] <ELECTRONICALLY SIGNED> By: David Tran MD, [facility] 10/07/16 0804 7 David Tran MD, [facility] /EPI
--- NOTE | ~2016-10-05 | D ---
[facility] [place] [address] DISCHARGE SUMMARY Name: DENISSE CHAPMAN V Room #: 447-P [facility] IN ..#: [id number] Admission: 10/05/16 Attend Phys: Kwabena Eastman MD Discharge: 10/15/16 Date of : [birth year] Report #: [id number] THIS REPORT FOR: //name// CC: [facility] Edward Longoria MD [facility] Kwabena Godfrey MD DATE OF SERVICE: 10/15/2016 SUMMARY OF HISTORY AND PHYSICAL: The patient presented with generalized weakness and failure to thrive. In the emergency room, she was found to have a urinary tract infection and an elevated INR. She also had mental status changes manifested with confusion. She had cough and shortness of breath. She required admission. SUMMARY OF HOSPITAL COURSE: The patient was admitted and started on intravenous antibiotic treatment of her urinary tract infection. She was administered oxygen for her shortness of breath. Her confusion improved. She was seen in cardiology consultation by Dr. Longoria, was given an increased diuretics, and her shortness of breath improved. She was seen in Pulmonary Medicine consultation by Dr. Barlow and Dr. Godfrey. Her pulmonary medications were increased and her shortness of breath improved. Arterial blood gases were obtained, which showed her to be profoundly hypoxic on room air. An echocardiogram showed her pulmonary artery pressures had increased from 60 mmHg to 85 mmHg. It was determined that her hypoxia was caused or contributed to by her pulmonary hypertension. Aggressive evaluation of her pulmonary hypertension with procedures such as lung biopsy and right heart catheterization were discussed by me in detail with both her road patcher, Dr. Longoria, and her damage assessor, Dr. Denilson Godfrey. Given her advanced age of 89 and limited exercise capacity, both consultants were inclined for a conservative approach indicating that their treatment would not likely change based on the outcome of these tests. The patient and her family were pleased with the recommendations that she not have further testing. On some days she was able to walk 40 feet with physical therapy, on other days only 2 feet, and she was transferred to a [facility] facility. Prior to discharge her blood pressure was 107/58, pulses 83, temperature 98.6. She tolerated low blood pressures of 95/52 well. At rest, she required 2 liters of nasal oxygen to obtain saturation over 93%, and with walking she required 4 liters of nasal oxygen to obtain a saturation [facility] [address] [place] [address] DISCHARGE SUMMARY Name: DENISSE CHAPMAN V Room #: 447-P [facility] IN ..#: [id number] Admission: 10/05/16 Attend Phys: Kwabena Eastman MD Discharge: 10/15/16 Date of : [birth year] Report #: [id number] over 93% according to the respiratory therapist the day before discharge. IMPORTANT LABORATORY DATA: A thoracentesis of 950 mL from the right chest revealed a transudate. Her creatinine was 1.1 on admission and stable at 1.4 at discharge, considered "dry" and optimum for her severe pulmonary hypertension. Her BUN was 12 on admission and 20 at discharge. Her INR was 1.4 at discharge and she was covered with orders for bridging Lovenox. WBCs were 9,100, hemoglobin was 10.5 at discharge. MCV was 79.6, reflecting serial blood draws while in the hospital. Mycoplasma IgM was negative. Sed rate was 6. Viral respiratory panel was negative. Arterial blood gas was as follows on room air: 7.5, pCO2 of 35.4, pO2 of 45.9 with a measured saturation of 82%. When repeated several days later, the pH was 7.43, pCO2 was 40.5, and pO2 dropped to 41.1 with the measured saturation of 75% on room air. Urinalysis showed blood and white blood cells on admission. She had been taking an antibiotic as an outpatient and the culture was negative. Prior to discharge PA and lateral chest showed bilateral small pleural effusions with minor basilar strandings. The heart remained mildly prominent with valve replacement and median sternotomy findings. Extensive surgical metal changes were noted in spine of the lumbar region with scoliosis and markedly abnormal all alignment. High resolution CT scan of the chest was negative for interstitial lung disease; 950 mL of transudate fluid were removed from the right side of her chest with a dramatic improvement in her shortness of breath and her cough. Video swallow by the speech therapy department showed her to safely tolerate all liquids and foods and solids. There was a recommendation that she follow carefully and would benefit from the administration of her pills with applesauce or pudding and to avoid large pieces of meats or bread and to crush large pills. DISCHARGE DIAGNOSES: 1. Toxic encephalopathy with an increase in her baseline confusion. 2. New diagnosis of severe pulmonary hypertension. 3. New diagnosis of hypoxia. 4. Chronic obstructive pulmonary disease. 5. Mitral valve replacement. 6. Congestive heart failure, relieved with diuresis. 7. Cough, relieved with thoracentesis of a large pleural effusion. 8. History of extensive lumbar spine surgery with subsequent deformities. [facility] [address] [place] [address] DISCHARGE SUMMARY Name: DENISSE CHAPMAN V Room #: 447-P [facility] IN M.R.#: [id number] Admission: 10/05/16 Attend Phys: Kwabena Eastman MD Discharge: 10/15/16 Date of : [birth year] Report #: [id number] 9. Chronic low back pain. 10. Obstructive sleep apnea effectively treated with BiPAP. 11. The patient tolerates low blood pressures (caused by her severe pulmonary hypertension). 12. UTI treatment continued from outpatient setting and was completed. 13. Other medical problems as in her history and physical. PLAN: She is transferred to [facility] facility. She is to take oxygen 2 liters by nasal cannula when at rest and 4 liters when walking. At discharge a portable oxygen concentrator is to be provided. MEDICATIONS: Ipratropium by nebulizer twice daily. Lovenox 80 mg subcu once daily until the INR is over 2, warfarin 4 mg daily until the INR is over 2 and then the doctors to be called. Metoprolol succinate 25 mg once daily. Diltiazem 180 mg extended release once daily. Ropinirole 0.25 mg at 5 and again at 9 p.m. for restless legs. Simethicone 80 mg to be chewed as needed for gas. Potassium chloride 10 mEq 3 tablets daily. Torsemide 20 mg 2 tablets for a total of 40 mg daily. Tylenol 500 mg one every 6-8 hours p.r.n. pain or temperature. Tramadol 50 mg every 6 hours p.r.n. Duloxetine 60 mg once daily. Pantoprazole 40 mg twice daily before meals. Atorvastatin 20 mg daily. Trazodone 50 mg at bedtime. Probiotic once daily. She is to be seen by Dr. Denilson Godfrey as an outpatient for further consideration, if the family and the patient wishe, to pursue the diagnosis of the cause of her pulmonary hypertension. Dr. Godfrey mentioned that the [facility] has a well-equipped specialty clinic for this purpose, should it wish to be pursued. She is also to be followed by Dr. Edward Longoria in his office. <ELECTRONICALLY SIGNED> By: Kwabena Eastman MD 10/18/16 2217 [id number] Kwabena Eastman MD /nt
[~2016-10-05 18:39] MED LIST changes: +CARDIZEM CD180 MG PO; +CEFUROXIME500 MG PO; +DEXAMETHASONE 44 M1 PO; +LIPITOR 20 MG T20 M1 PO; +MIRALAX17 GM PO; +TRAZODONE HCL50 MG PO
[2016-10-05 18:41] VITALS: BP 105/79
[2016-10-05 19:34] LABS: ABSOLUTE NEUTROPHILS 5.6 thou/uL (1.4-8.2); BASOPHILS 0.5 % (0.0-2.0); EOSINOPHILS 4.1 % (0.0-3.0); HEMATOCRIT 38.3 % (37.0-47.0); HEMOGLOBIN 12.4 gm/dL (12.0-15.0); LYMPHOCYTES 15.8 % (24.0-44.0); MCH 26.1 pg (26.0-34.0); MCHC 32.3 g/dL (28.0-37.0); MCV 80.7 fL (80.0-100.0); PLATELET COUNT 165 thou/uL (150-400); POLYS 70.6 % (36.0-66.0); RBC 4.74 mil/uL (4.20-5.00); RDW 17.3 % (10.5-14.5); WBC 7.9 thou/uL (4.0-11.0)
[2016-10-05 19:35] LABS: CALCIUM 8.4 mg/dL (8.5-10.1); CREATININE 1.1 mg/dL (0.6-1.0); MANUAL DIFF NO; POTASSIUM 3.9 mmol/L (3.5-5.1)
[2016-10-05] MEDS ORDERED: FLAGYL500 MG PO (19:35)
[2016-10-05] MEDS ORDERED: AMOXICILLIN 50500 MG PO (19:35)
[2016-10-05] MEDS ORDERED: PROBIOTIC1 EAC1 PO (19:35)
[2016-10-05 19:41] LABS: ALBUMIN 2.7 g/dL (3.4-5.0); DIRECT BILIRUBIN 0.3 mg/dL (<0.1-0.3); TOTAL BILIRUBIN 1.2 mg/dL (<0.1-1.0); TOTAL PROTEIN 6.5 g/dL (6.4-8.2)
[2016-10-05 20:24] LABS: APTT 49.2 Seconds (24.5-32.8); INR 4.1; PROTIME 40.9 Seconds (9.3-11.4)
[2016-10-05 21:09] LABS: URINE BLOOD 3+ (Negative); URINE GLUCOSE-RANDOM* NEGATIVE (Negative); URINE KETONES TRACE (Negative); URINE NITRITE NEGATIVE (Negative); URINE PROTEIN (DIPSTICK) 1+ (Negative); URINE UROBILINOGEN 0.2 E.U./dl (0.2-1.0)
[2016-10-05 21:14] LABS: ICTOTEST (BILI CONFIRMATORY) Negative (Negative); URINE BILIRUBIN NEGATIVE (Negative); URINE COLOR DARK YELLOW
[2016-10-05 21:22] LABS: SQUAMOUS 0-3 Few /LPF (0-3)
[2016-10-05 21:23] LABS: AMORPHOUS URATES Moderate /LPF (None Seen); URINE WBC 6-15 Few /HPF (0-5)
[2016-10-05 21:24] LABS: HYALINE CASTS 0-3 Few /LPF (None Seen)
[2016-10-05 22:01] VITALS: BP 111/54
[2016-10-05 22:32] VITALS: BP 120/60
[2016-10-05 23:00] VITALS: BP 122/57
[2016-10-06 04:30] VITALS: BP 115/57
[2016-10-06 07:13] LABS: HEMATOCRIT 35.8 % (37.0-47.0); HEMOGLOBIN 11.5 gm/dL (12.0-15.0); MCH 26.1 pg (26.0-34.0); MCHC 32.2 g/dL (28.0-37.0); MCV 80.9 fL (80.0-100.0); RBC 4.43 mil/uL (4.20-5.00); WBC 7.8 thou/uL (4.0-11.0)
[2016-10-06 07:22] LABS: CALCIUM 8.2 mg/dL (8.5-10.1); CREATININE 0.9 mg/dL (0.6-1.0); POTASSIUM 3.7 mmol/L (3.5-5.1)
[2016-10-06 08:00] VITALS: BP 111/95
[2016-10-06 16:00] VITALS: BP 123/64
[2016-10-06 20:00] VITALS: BP 98/40
[2016-10-07 03:56] VITALS: BP 99/39
[2016-10-07 06:50] LABS: PROTIME 48.9 Seconds (9.3-11.4)
[2016-10-07 06:52] LABS: INR 4.9
[2016-10-07 07:56] VITALS: BP 95/52
[2016-10-07 14:19] VITALS: BP 95/52
[2016-10-07 15:47] VITALS: BP 108/50
[2016-10-07 20:24] VITALS: BP 97/58
[2016-10-08 03:51] VITALS: BP 111/58
[2016-10-08 03:52] LABS: CALCIUM 7.8 mg/dL (8.5-10.1); CREATININE 1.2 mg/dL (0.6-1.0); POTASSIUM 3.6 mmol/L (3.5-5.1)
[2016-10-08 04:16] LABS: INR 1.7
[2016-10-08 07:23] VITALS: BP 100/59
[2016-10-08 16:33] VITALS: BP 147/47
[2016-10-08 19:07] VITALS: BP 111/53
[2016-10-09 03:48] VITALS: BP 111/55
[2016-10-09 04:57] LABS: HEMATOCRIT 34.6 % (37.0-47.0); HEMOGLOBIN 11.7 gm/dL (12.0-15.0); MCH 26.7 pg (26.0-34.0); MCHC 33.7 g/dL (28.0-37.0); MCV 79.2 fL (80.0-100.0); RBC 4.37 mil/uL (4.20-5.00); RDW 17.3 % (10.5-14.5); WBC 9.9 thou/uL (4.0-11.0)
[2016-10-09 05:04] LABS: INR 1.4; PROTIME 14.7 Seconds (9.3-11.4)
[2016-10-09 05:05] LABS: CALCIUM 7.4 mg/dL (8.5-10.1); CREATININE 1.3 mg/dL (0.6-1.0); POTASSIUM 3.6 mmol/L (3.5-5.1)
[2016-10-09 08:46] VITALS: BP 88/56
[2016-10-09 09:58] VITALS: BP 92/48
[2016-10-09 16:55] LABS: ABG SAMPLE TYPE ARTERIAL; BE(vivo) 5.8 mmol/L (-2 to +3); HCO3 28.7 mmol/L (22.0-26.0); LACTATE 2.31 mmol/L (0.5-2.0); O2(CT) 13.4 mL/dL (15.0-23.0); PCO2 35.4 mmHg (35.0-45.0); pH 7.526 (7.360-7.450); sO2 86.8 % (92.0-98.0); tCO2 29.7 mmol/L (24.0-30.0)
[2016-10-09 16:56] LABS: O2Hb 82.2 % (92.0-98.0); PO2 45.9 mmHg (80.0-100.0); STICK SITE L.RADIAL
[2016-10-09 17:10] LABS: ALBUMIN 2.8 g/dL (3.4-5.0); DIRECT BILIRUBIN 0.3 mg/dL (<0.1-0.3); TOTAL BILIRUBIN 0.9 mg/dL (<0.1-1.0)
[2016-10-09 20:45] VITALS: BP 110/58
[2016-10-10 04:30] VITALS: BP 113/55
[2016-10-10 05:58] LABS: INR 1.6
[2016-10-10 08:00] VITALS: BP 112/65
[2016-10-10 16:00] VITALS: BP 100/57
[2016-10-10 20:43] VITALS: BP 122/67
[2016-10-11 04:00] VITALS: BP 122/61
[2016-10-11 05:36] LABS: HEMATOCRIT 32.5 % (37.0-47.0); HEMOGLOBIN 10.8 gm/dL (12.0-15.0); MCH 26.4 pg (26.0-34.0); MCHC 33.3 g/dL (28.0-37.0); MCV 79.2 fL (80.0-100.0); RBC 4.11 mil/uL (4.20-5.00); RDW 17.2 % (10.5-14.5); WBC 7.8 thou/uL (4.0-11.0)
[2016-10-11 05:43] LABS: CREATININE 1.1 mg/dL (0.6-1.0)
[2016-10-11 05:44] LABS: INR 2.1; PROTIME 21.3 Seconds (9.3-11.4)
[2016-10-11 06:09] LABS: POTASSIUM 2.9 mmol/L (3.5-5.1)
[2016-10-11 07:59] VITALS: BP 118/62
[2016-10-11 12:32] LABS: APTT 49.9 Seconds (24.5-32.8); INR 2.5
[2016-10-11 15:43] VITALS: BP 103/55
[2016-10-11 19:14] VITALS: BP 119/49
[2016-10-12 04:24] VITALS: BP 108/61
[2016-10-12 05:01] LABS: CALCIUM 8.5 mg/dL (8.5-10.1); CREATININE 1.2 mg/dL (0.6-1.0); INR 1.4; POTASSIUM 3.9 mmol/L (3.5-5.1); PROTIME 14.3 Seconds (9.3-11.4)
[2016-10-12 08:23] VITALS: BP 121/56
[2016-10-12 15:32] LABS: BF NUCLEATED CELLS 2103; BF RBC 8088
[2016-10-12 15:37] LABS: CLARITY CLOUDY; COLOR AMBER; MANUAL DIFF YES; TOTAL VOLUME 51 mL
[2016-10-12 17:32] VITALS: BP 106/64
[2016-10-12 19:51] VITALS: BP 98/56
[2016-10-12 21:11] LABS: INFLUENZA B Negative (Negative); METAPNEUMOVIRUS Negative (Negative)
[2016-10-13 04:12] LABS: HEMATOCRIT 31.3 % (37.0-47.0); HEMOGLOBIN 10.5 gm/dL (12.0-15.0); MCH 26.6 pg (26.0-34.0); MCHC 33.4 g/dL (28.0-37.0); MCV 79.6 fL (80.0-100.0); RBC 3.93 mil/uL (4.20-5.00); RDW 17.5 % (10.5-14.5); WBC 9.1 thou/uL (4.0-11.0)
[2016-10-13 04:17] LABS: CALCIUM 8.4 mg/dL (8.5-10.1); CREATININE 1.1 mg/dL (0.6-1.0)
[2016-10-13 04:18] LABS: INR 1.1; PROTIME 11.6 Seconds (9.3-11.4)
[2016-10-13 05:35] VITALS: BP 108/59
[2016-10-13 08:38] VITALS: BP 100/52
[2016-10-13 13:08] LABS: BODY FLUID AMYLASE 34 U/L (()); BODY FLUID GLUCOSE 118 mg/dL (()); BODY FLUID LDH 236 IU/L (())
[2016-10-13 16:33] VITALS: BP 91/48
[2016-10-13 17:30] LABS: ABG SAMPLE TYPE ARTERIAL; LACTATE 1.47 mmol/L (0.5-2.0); O2(CT) 12.5 mL/dL (15.0-23.0); PCO2 40.5 mmHg (35.0-45.0); pH 7.473 (7.360-7.450); sO2 79.9 % (92.0-98.0); tCO2 30.3 mmol/L (24.0-30.0)
[2016-10-13 17:31] LABS: O2Hb 75.6 % (92.0-98.0); PO2 41.1 mmHg (80.0-100.0); STICK SITE R.RADIAL
[2016-10-13 21:00] VITALS: BP 90/53
[2016-10-14 05:10] VITALS: BP 102/51
[2016-10-14 06:05] LABS: CALCIUM 8.6 mg/dL (8.5-10.1); CREATININE 1.3 mg/dL (0.6-1.0); POTASSIUM 3.8 mmol/L (3.5-5.1)
[2016-10-14 06:08] LABS: INR 1.2; PROTIME 12.7 Seconds (9.3-11.4)
[2016-10-14 08:00] VITALS: BP 99/59
[2016-10-14 09:04] LABS: BF NEUTROPHILS 2
[2016-10-14 09:05] LABS: BF MACROPHAGE 20
[2016-10-14 16:00] VITALS: BP 96/43
[2016-10-14 16:04] VITALS: BP 95/52
[2016-10-14] MEDS ORDERED: METOPROLOL SUCC25 M1 PO (17:06)
[2016-10-14] MEDS ORDERED: COUMADIN 4 MG TA4 M1 PO (17:06)
[2016-10-14] MEDS ORDERED: ENOXAPARIN80 MG/0.1 SUBQ (17:06)
[2016-10-14] MEDS ORDERED: SIMETHICON CHEW80 M1 PO (17:06)
[2016-10-14] MEDS ORDERED: REQUIP 0.25 M0.25 MG PO (17:06)
[2016-10-14] MEDS ORDERED: DEMADEX20 MG PO (17:06)
[2016-10-14] MEDS ORDERED: KLOR-CON 1010 MEQ PO (17:06)
[2016-10-14] MEDS ORDERED: IPRATROPIU0.2 MG/1 M INH ×2 (17:06→17:09)
[2016-10-14 19:20] VITALS: BP 110/62
[2016-10-15 05:18] LABS: CALCIUM 8.5 mg/dL (8.5-10.1); CREATININE 1.4 mg/dL (0.6-1.0)
[2016-10-15 05:21] LABS: INR 1.4; PROTIME 14.6 Seconds (9.3-11.4)
[2016-10-15 05:33] VITALS: BP 100/53
[2016-10-15 08:55] VITALS: BP 107/58
[2016-10-15] MEDS ORDERED: ACETAMINOPHEN500 MG PO (10:48)
[2016-10-15] MEDS ORDERED: ENOXAPARIN80 MG/0.1 INJECTION (10:48)
[2016-10-15] MEDS ORDERED: COUMADIN 4 MG TA4 M1 PO (10:48)
== END 2016-10-15 14:53 | DRG 314 ==
LOC: ER 18:39 → EROBS 21:35 → 4S 21:35
PROVIDERS: Emergency Medicine; Internal Medicine; Internal Medicine Pulmonary Disease; Nurse Practitioner Adult Health
PROC: 5A09457 Assistance with Respiratory Ventilation, 24-96 Consecutive Hours, Continuous Positive Airway Pressure (ICD-10-PCS; principal; 2016-10-08)
PROC: BB4BZZZ Ultrasonography of Pleura (ICD-10-PCS; 2016-10-12)
PROC: 0W993ZZ Drainage of Right Pleural Cavity, Percutaneous Approach (ICD-10-PCS; 2016-10-12)
DX: I27.2 Other secondary pulmonary hypertension (principal); G92 Toxic encephalopathy; I26.99 Other pulmonary embolism without acute cor pulmonale; N39.0 Urinary tract infection, site not specified; E87.1 Hypo-osmolality and hyponatremia; I50.30 Unspecified diastolic (congestive) heart failure; J90 Pleural effusion, not elsewhere classified; Z96.642 Presence of left artificial hip joint; E78.00 Pure hypercholesterolemia, unspecified; I11.0 Hypertensive heart disease with heart failure; E78.5 Hyperlipidemia, unspecified; I48.2 Chronic atrial fibrillation; R41.3 Other amnesia; R09.02 Hypoxemia; J44.9 Chronic obstructive pulmonary disease, unspecified; R62.7 Adult failure to thrive; G89.29 Other chronic pain; M54.5 Low back pain; G47.33 Obstructive sleep apnea (adult) (pediatric); K21.9 Gastro-esophageal reflux disease without esophagitis; I05.0 Rheumatic mitral stenosis; I95.9 Hypotension, unspecified; E87.6 Hypokalemia; G25.81 Restless legs syndrome; Z95.2 Presence of prosthetic heart valve; Z88.8 Allergy status to other drugs, medicaments and biological substances; Z91.040 Latex allergy status; Z87.01 Personal history of pneumonia (recurrent); Z98.49 Cataract extraction status, unspecified eye; Z79.899 Other long term (current) drug therapy; Z79.01 Long term (current) use of anticoagulants
CPT/HCPCS: 10100; 27001

== ENCOUNTER → 2016-11-25 | Outpatient (CLI) | payer OTHER ==
[~2016-11-25] MED LIST changes: +ACETAMINOPHEN500 MG PO; +AMOXICILLIN 50500 MG PO; +COUMADIN 4 MG TA4 M1 PO; +DEMADEX20 MG PO; +ENOXAPARIN80 MG/0.1 INJECTION; +ENOXAPARIN80 MG/0.1 SUBQ; +FLAGYL500 MG PO; +IPRATROPIU0.2 MG/1 M INH; +METOPROLOL SUCC25 M1 PO; +PROBIOTIC1 EAC1 PO; +REQUIP 0.25 M0.25 MG PO; +SIMETHICON CHEW80 M1 PO
== END ==
LOC: RAD 15:42
DX: J90 Pleural effusion, not elsewhere classified (principal); J98.11 Atelectasis